=== PATIENT | female | born 2005 | race Caucasian/White ===

== ENCOUNTER → 2024-04-07 10:54 | Outpatient (CLI) | payer OTHER, SELFPAY ==
[2024-04-07 20:44] LABS: Bilirubin Urine UA NEGATIVE (NEGATIVE); Color Urine UA YELLOW; Glucose Urine UA NEGATIVE (Negative); Ketones Urine UA NEGATIVE (NEGATIVE); Leukocyte Esterase Urine UA NEGATIVE (NEGATIVE); Nitrite Urine UA NEGATIVE (Negative); Occult Blood Urine UA NEGATIVE (Negative); Protein Urine UA TRACE (Negative); Specific Gravity Urine UA 1.015 (1.000-1.035); Urobilinogen Urine UA 0.2 E.U./dL (0.2)
[2024-04-07 20:55] LABS: Appearance Urine UA CLOUDY
[2024-04-07 20:56] LABS: Amorphous Sediment Urine 4+; Bacteria Urine Few (2-10); Culture Indicated Urine Cult Not Indicated; RBC Urine None Seen (0-5/HPF); Squamous Epithelial Cell Urine 0-1 /HPF (0-5/HPF); Urine Volume 10mL (spun); WBC Urine None Seen (0-5/HPF)
[2024-04-07 21:17] LABS: HIV 1 & 2 Ab/Ag 4th Gen Combo NEGATIVE (NEGATIVE)
[2024-04-09 21:09] LABS: Treponema pallidum Antibodies Non Reactive (Non Reactive)
[2024-04-10 04:07] LABS: Chlamydia trachomatis NAA Negative (Negative); Neisseria gonorrhoeae NAA Negative (Negative)
== END ==
PROVIDERS: PCP Pediatrics; Referring Provider Pediatrics; Visit Provider Pediatrics
DX: N39.0 Urinary tract infection, site not specified (principal)
CPT/HCPCS: 81001; 86780; 87389; 87491; 87591

== ENCOUNTER → 2024-04-08 16:12 | Outpatient (CLI) | payer OTHER, SELFPAY | PROVIDERS: PCP Pediatrics; Visit Provider Pediatrics | DX: N39.0 Urinary tract infection, site not specified (principal) | CPT/HCPCS: 87086 ==